=== PATIENT | female | born 1960 | race African-American/Black ===

== ENCOUNTER 2017-05-22 06:22 | Day surgery (SDC) | payer BC, OTHER ==
[2017-05-18 15:29] VITALS: BMI 40.0
[2017-05-22] MEDS ORDERED: HEPARIN NA (PORCINE) 5,000 UNITS/ML 1ML VIAL ONE (07:10)
[2017-05-22] MEDS ORDERED: CLINDAMYCIN PHOSPHATE 300 MG/2 ML VIAL ONE (07:16)
[2017-05-22] MEDS ORDERED: CLINDAMYCIN PHOSPHATE 600 MG/4 ML VIAL ONE (07:16)
[2017-05-22] MEDS ORDERED: HEPARIN NA (PORCINE) 5,000 UNITS/ML 1ML VIAL SQ ONE ×2 (07:25→08:00)
--- NOTE | 2017-05-22 07:38 | HP ---
History & Physical Update - History History: No Change - Physical Physical: No Change - Assessment Assessment: No Change - Plan Plan: No Change (No new complaints or medications since completion of her initial H&P.)
[2017-05-22] MEDS ORDERED: SUCCINYLCHOLINE CHLORIDE 200 MG/10 ML VIAL ONE (07:57)
[2017-05-22] MEDS ORDERED: ROCURONIUM BROMIDE 50 MG/5 ML VIAL ONE ×2 (07:57→12:44)
[2017-05-22] MEDS ORDERED: MIDAZOLAM HCL 2 MG/2 ML SINGLE DOSE VIAL ONE (07:57)
[2017-05-22] MEDS ORDERED: PROPOFOL 20 ML ONE (07:57)
[2017-05-22] MEDS ORDERED: DESFLURANE GAS 240 ML BOTTLE IH ONE (08:05)
[2017-05-22] MEDS ORDERED: CLINDAMYCIN 600 MG PREMIX BAG IVPB ONE (08:55)
[2017-05-22] MEDS ORDERED: DEXAMETHASONE SOD PHOSPHATE 4 MG/1 ML VIAL ONE ×2 (08:57→14:49)
[2017-05-22] MEDS ORDERED: METOPROLOL TARTRATE 5 MG/5 ML VIAL ONE (09:35)
[2017-05-22] MEDS ORDERED: fentaNYL CITRATE 250 MCG/5 ML VIAL ONE (10:28)
[2017-05-22] MEDS ORDERED: EPINEPHrine/PF 1 MG/1 ML (1:1,000) AMPULE ONE ×2 (10:32→10:55)
[2017-05-22] MEDS ORDERED: BACITRACIN 15 GM TUBE TOPICAL OINTMENT ONE (13:39)
--- NOTE | 2017-05-22 15:48 | SURG ---
Surgery Tile Applicator Note Tile Applicator: Armani Hillman PA-C Date of Service: 05/22/17 Diagnosis: Morbid obesity Procedure: Panniculectomy I was present for the entirety of the operative procedure. For further detail, please refer to operative report. Visit type - Case Type Case Type: Scheduled Admission - New patient This patient is new to me today: Yes Date on this admission: 05/22/17
[2017-05-22] MEDS ORDERED: ONDANSETRON 4 MG/2 ML VIAL IVPUSH PRN (15:51)
[2017-05-22] MEDS ORDERED: HYDROmorphone *PCA* 6MG/30ML DISP.SYRIN PCA ONE (15:58)
[2017-05-22] MEDS ORDERED: LACTATED RINGERS SOLUTION 1,000 ML IV SCH ×2 (16:00→16:15)
[2017-05-22] MEDS ORDERED: ONDANSETRON 4 MG/2 ML VIAL IVPB PRN (16:06)
[2017-05-22] MEDS ORDERED: morphine SULFATE 4 MG/ML VIAL IVPUSH PRN (16:06)
--- NOTE | 2017-05-22 16:12 | OP ---
Operative Note - Note: Operative Date: 05/22/17 Pre-Operative Diagnosis: obesity Operation: panniculectomy with lateral thigh lift and liposuction Post-Operative Diagnosis: Same as Pre-op Surgeon: Yimi Chakraborty Measurement Department Chief Clerk: Armani Hillman Anesthesia: General Estimated Blood Loss (mls): 300 Drains & Tubes with Location: REHANA x 3 abdomen
[2017-05-22] MEDS: HYDROmorphone *PCA* 6MG/30ML DISP.SYRIN PCA SCH (17:00)
[2017-05-22] MEDS: CLINDAMYCIN 900 MG PREMIX IVPB 900 MG/50 ML BAG IVPB SCH (18:47)
[2017-05-22] MEDS: HEPARIN NA (PORCINE) 5,000 UNITS/ML 1ML VIAL SQ SCH (21:19)
[2017-05-23] MEDS: CLINDAMYCIN 900 MG PREMIX IVPB 900 MG/50 ML BAG IVPB SCH ×2 (01:50→08:55)
[2017-05-23] MEDS ORDERED: HYDROmorphone *PCA* 6MG/30ML DISP.SYRIN PCA ONE (06:43)
[2017-05-23] MEDS: HYDROmorphone *PCA* 6MG/30ML DISP.SYRIN PCA SCH (06:45)
[2017-05-23 06:56] VITALS: BP 121/68
--- NOTE | 2017-05-23 08:27 | PN ---
Progress Note (short form) - Note Progress Note: VSS AF, ambulating, erasmo PO, REHANA thin and functioning OK for discharge with Eliquis, garment to stay on and dry, follow up in one week
[2017-05-23] MEDS: HEPARIN NA (PORCINE) 5,000 UNITS/ML 1ML VIAL SQ SCH (09:19)
--- NOTE | 2017-05-23 09:36 | OP ---
DATE OF OPERATION: 05/22/2017 TITLE OF PROCEDURE: Panniculectomy with bilateral thigh lift and thigh liposuction. ATTENDING SURGEON: Yimi Marr MD PREOPERATIVE DIAGNOSIS: Morbid obesity. POSTOPERATIVE DIAGNOSIS: Morbid obesity. MANAGER FLIGHT: SUSAN Epps ANESTHESIA: General endotracheal anesthesia. DESCRIPTION OF PROCEDURE: The patient is seen in the holding area and marked of the preoperative markings and incisions when she was awake, aware of all risks, benefits and alternatives to this operation, including pulmonary embolus and are discussed, understood, and the patient agrees to proceed. The patient is given 5000 units of subcutaneous heparin preoperatively. She is given 900 mg of clindamycin preoperatively. She is given TEDs and sequential hose in the holding area. After this, she is brought to the operating room and placed in a supine position. She is positioned while awake and comfortable. All positioning aids are used. Foam arm cradles are used. A pillow is placed beneath the knees. All extremities are well secured on the operative table. A Bolton catheter is placed. General anesthesia is given. She is prepped and draped in the standard surgical fashion. A timeout is called. Patient, procedure, side and sites are verified. At this point, incision is made along the infrapannicular crease and dissection carried down to the level of the abdominal wall fascia. At this point, dissection is then carried along the abdominal wall fascia to the level of the umbilicus. All perforating blood vessels are either suture ligated or cautery ligated. Hemostasis is meticulously achieved. The umbilicus is then circumcised and developed on a fibrofatty stalk down to the level of the abdominal wall fascia. Dissection is then carried superior to the umbilicus to the xiphoid process in the midline and costal margins bilaterally. At this point, midline plication is performed in two separate layers with number 1 Prolene [id number] buried sutures, both above and below the umbilicus. A second running locking 1-Prolene reinforcement suture is then used each above and below the umbilicus. A wide space is given for the umbilicus to be translocated without compression or strangulation on the tissues. The pannus is incised and unfolded to the midaxillary line bilaterally. With the patient brought to a 30-degree, upright seated position, the skin and tissue is unfolded and excess is trimmed with the skin tailor tacked. Hemostasis is then meticulously achieved at all portions of the wound. The umbilicus translocation site is marked. This is performed through a Star Trek pattern incision in the abdominoplasty flap. The umbilicus itself is converted into a Star Trek pattern where the inferior 6 o'clock notch of the flap is inset with a 6 o'clock flap from the abdominoplasty skin. The inset is performed with a series of interrupted buried deep dermal 3-0 Monocryl suture, followed by a running 5-0 nylon suture. Size 19-round Minesh drains are brought out at three separate points on each lateral extent of the incision, as well as a midline transpubic stab wound. The drains were secured with 3-0 silk drain suture. The midline is going to the superior portion of the wound to the right on the right inferior recess, to the left on the left inferior recess. At this point, prior to final closure, the bilateral thighs are infiltrated with wetting solution. The wetting solution is a liter of Lactated Ringer's with one ampule of 1:1000 epinephrine. A full 20 minutes is waited for hemostatic effect of the wetting solution, after which the SAFE technique of liposuction is performed with pre and post-tunneling. Next, 5 and 4-mm cannulas and a power system are used for liposuction. The endpoint is the appearance of bloody fluid within the lipoaspirate and a smooth, even contour. The liposuction is completed with a total lipoaspirate of 1200 mL from the right thigh and 1000 mL from the left thigh. Total infiltration for this case was 2 liters of the aforementioned wetting solution. At this point, first, the right thigh is addressed. It is undermined until the sub-Gio plane which was treated with the liposuction is identified. The fascia is mobilized and using fascia from the Gio layer to the deep fascia of the groin, a series of interrupted number 1 PDS sutures are placed to hold the tension on the lateral thigh flap. Excess skin and fat is then excised. This procedure is repeated on the left side and the closure is performed with a series of interrupted buried deep dermal 3-0 Monocryl suture, followed by a running 3-0, 90-day V-Loc suture, followed by a series of interrupted 4-0 nylon sutures. The abdominoplasty flap is closed first with a series of interrupted buried Gio layer superficial fascial system 2-0 Vicryl suture, followed by a series of interrupted buried deep dermal 3-0 Monocryl suture, followed by a running 90-day V-Loc suture. Several 4-0 nylon sutures are placed to perfect the alignment of the closure. The umbilicus is dressed with bacitracin. All tissues are pink and viable at the end of the procedure. The transverse incision is dressed with Steri-Strips, 4 x 4 gauze. Abdominal binder and compression shorts are applied. The patient is awoken from anesthesia, Bolton catheter is removed, having tolerated the procedure well, transferred onto the recovery bed. YIMI MARR M.D. [id number]
[2017-05-23 10:29] VITALS: PULSE 86; TEMP 98.6
--- NOTE | 2017-05-24 14:21 | PATH ---
Surgical Pathology Report Patient Name: SHAYNA BERMEO [facility]. Rec. #: [id number] /Age/Gender: 1960 (Age: 56) / F Account: [id number] Location: AMBULATORY SURG Taken: 05/22/2017 Received: 05/23/2017 Reported: 05/24/2017 Physicians: Yimi Chakraborty Specimen(s) Received A: LIPOMAS B: PANNUS Clinical History Obesity, panniculectomy Final Diagnosis A. LIPOMAS, EXCISION: MATURE FIBROADIPOSE TISSUE CONSISTENT WITH LIPOMA. B. PANNUS, PANNICULECTOMY: UNREMARKABLE SKIN AND ADIPOSE TISSUE. MACROSCOPIC DIAGNOSIS. Electronically Signed Virginia Alicea M.D. Gross Description A. Received in formalin labeled "lipomas," is a 10.0 x 9.5 x 2.5 cm aggregate of yellow, lobulated adipose tissue. Sectioning reveals homogeneous yellow, smooth fat. No areas of hemorrhage or necrosis are identified. Drill Press Operator Numerical Control sections are submitted in 5 cassettes. B. Received in formalin labeled "pannus," is a 4532 g, 50.0 x 32.0 x 4.5 cm aggregate of brown, irregular portions of skin with underlying soft tissue. One of the portions displays a tattoo. Sectioning reveals unremarkable yellow, lobulated adipose tissue. No lesions are identified. No sections are submitted, gross only. 05/23/2017 saudi05/23/2017
--- NOTE | 2017-05-26 12:07 | OP ---
DATE OF OPERATION: 05/22/2017 ADDENDUM TITLE OF PROCEDURE: Excision of incidental lipoma to superior abdominal wall. DESCRIPTION OF PROCEDURE: An incidental singular large lobule of fat consistent with a lipoma is found to be easily separable from the subcutaneous fat of the upper abdominoplasty flap. This is consistent with a moderate to large lipoma which was not clinically evident preoperatively. It is resected from the surrounding tissue, sent to Pathology as a separate specimen. The defect is cauterized for hemostasis prior to closure. Pathology is returned that this is lipoma. EJ MARR M.D. [id number]
== END 2017-05-23 13:08 | disposition home or self-care (01) ==
LOC: JASUSAT 06:22 → J6S 17:30 → JASUSAT 05-23 13:08
PROVIDERS: ATTEND Plastic Surgery
PROC: 0J080ZZ Alteration of Abdomen Subcutaneous Tissue and Fascia, Open Approach (ICD-10-PCS; 2017-05-22)
PROC: 0J0M3ZZ Alteration of Left Upper Leg Subcutaneous Tissue and Fascia, Percutaneous Approach (ICD-10-PCS; 2017-05-22)
PROC: 0J0L3ZZ Alteration of Right Upper Leg Subcutaneous Tissue and Fascia, Percutaneous Approach (ICD-10-PCS; 2017-05-22)
PROC: 0JB80ZZ Excision of Abdomen Subcutaneous Tissue and Fascia, Open Approach (ICD-10-PCS; 2017-05-22)
PROC: 0J083ZZ Alteration of Abdomen Subcutaneous Tissue and Fascia, Percutaneous Approach (ICD-10-PCS; principal; 2017-05-22 08:00)
DX: E66.01 Morbid (severe) obesity due to excess calories (principal); D17.1 Benign lipomatous neoplasm of skin and subcutaneous tissue of trunk
CPT/HCPCS: 88300-TC; 88304-TC; 94760; J1170; J1644